=== PATIENT | male | born 1990 | race Caucasian/White ===

== ENCOUNTER 2023-03-14 22:45 | Emergency (ER) | payer OTHER ==
[~2023-03-14] VITALS: Ht 152.4 cm; Wt 52.6 kg
[~2023-03-14 22:45] MED LIST: IBU800 MG PO; KETOROLAC10 MG PO; PREDNISONE10 MG PO; PREDNISONE20 M1 PO
== END 2023-03-15 01:10 | disposition home or self-care (01) ==
LOC: ED 22:45
DX: S89.92XA Unspecified injury of left lower leg, initial encounter (principal); Z88.0 Allergy status to penicillin; W23.0XXA Caught, crushed, jammed, or pinched between moving objects, initial encounter; Y93.52 Activity, horseback riding; Y92.89 Other specified places as the place of occurrence of the external cause; Y99.8 Other external cause status

== ENCOUNTER → 2023-03-15 | Outpatient (CLI) | payer OTHER | END | disposition home or self-care (01) | LOC: US 08:58 | PROVIDERS: ATTEND Internal Medicine | DX: S89.92XA Unspecified injury of left lower leg, initial encounter (principal); M79.605 Pain in left leg; M79.89 Other specified soft tissue disorders; X58.XXXA Exposure to other specified factors, initial encounter; Y93.89 Activity, other specified; Y92.89 Other specified places as the place of occurrence of the external cause; Y99.8 Other external cause status ==